=== PATIENT | male | born 1995 | race Asian ===

== ENCOUNTER 2019-04-23 22:34 | Emergency (ER) | payer BC ==
[~2019-04-23] VITALS: Ht 177.8 cm; Wt 72.6 kg
--- NOTE | 2019-04-23 22:44 | NUR ---
PT TAKEN TO BED 3
[2019-04-23 22:46] VITALS: BP 115/95
--- NOTE | 2019-04-23 22:54 | NUR ---
23 Y/O MALE PLACED IN BED 3 C/O FACIAL TRAUMA
[2019-04-23] MEDS ORDERED: KETOROLAC 60 MG/2 ML VIAL IM ONE (23:05)
--- NOTE | 2019-04-23 23:09 | NUR ---
PT TAKEN TO XRAY
[2019-04-23] MEDS ORDERED: AMOXIL/CLAVULANATE 875/125 MG 1 TAB PO ONE (23:30)
--- NOTE | 2019-04-23 23:32 | NUR ---
Dr. Palomares examining patient.
[2019-04-24 00:34] VITALS: BP 124/69
--- NOTE | 2019-04-24 00:36 | NUR ---
dx - nasal trauma. aci with rx given to pt. pt discharged home to follow up with en[facility] at [facility]
== END 2019-04-24 00:36 | disposition home or self-care (01) ==
LOC: MED 22:34
DX: S02.2XXA Fracture of nasal bones, initial encounter for closed fracture (principal); J45.909 Unspecified asthma, uncomplicated; W21.05XA Struck by basketball, initial encounter; Y93.89 Activity, other specified; Y92.89 Other specified places as the place of occurrence of the external cause; Y99.8 Other external cause status
CPT/HCPCS: 70160; 96372; 99283; J1885